=== PATIENT | male | born 1940 ===

== ENCOUNTER 2022-07-17 20:20 | Emergency (ER) | payer MEDICARE ==
[~2022-07-17] VITALS: Ht 177.8 cm; Wt 93.0 kg
[~2022-07-17 20:20] MED LIST: CEPH500 PO; CETI10 PO
[2022-07-17 20:46] VITALS: BP 150/84
== END 2022-07-17 23:44 | disposition home or self-care (01) ==
LOC: ER 20:20
DX: S20.361A Insect bite (nonvenomous) of right front wall of thorax, initial encounter (principal); W57.XXXA Bitten or stung by nonvenomous insect and other nonvenomous arthropods, initial encounter
CPT/HCPCS: A9270